=== PATIENT | female | born 1990 | race Caucasian/White ===

== ENCOUNTER 2019-04-17 16:04 | Inpatient (IN) | payer MEDICAID, OTHER ==
[~2019-04-17] VITALS: Ht 152.4 cm; Wt 71.8 kg
[~2019-04-17 16:04] MED LIST: IBUP-1542 PO; Lanolin Hpa TOP; PNV11TAB PO; SENOKOTS PO; TUCKS PR
[2019-04-17] MEDS ORDERED: LACTATED RINGER'S 1,000 ML IV SCH (16:06)
[2019-04-17] MEDS ORDERED: CARBOPROST 250 MCG INJ IM PRN ×2 (16:30→20:00)
[2019-04-17] MEDS ORDERED: METHYLERGONOVINE 0.2 MG INJ IM PRN ×2 (16:30→20:00)
[2019-04-17] MEDS ORDERED: OXYTOCIN 30 UNITS/LR 500 ML IV SCH ×3 (16:30→19:54)
[2019-04-17] MEDS ORDERED: MISOPROSTOL 200 MCG TAB PR PRN ×2 (16:30→20:00)
[2019-04-17] MEDS ORDERED: BUTORPHANOL 2 MG INJ IV PRN (16:30)
[2019-04-17] MEDS ORDERED: LIDOCAINE 1% (MPF) 30 ML INJ INJ PRN (16:30)
[2019-04-17] MEDS ORDERED: OXYTOCIN 30 UNITS/LR 500 ML IV PRN ×2 (16:30→20:00)
[2019-04-17] MEDS ORDERED: IBUPROFEN 600 MG TAB PO PRN (16:30)
[2019-04-17] MEDS ORDERED: FENTAnyl 2MCG/ML-ROPIV 0.2% 100 ML ONE (17:30)
[2019-04-17] MEDS ORDERED: LACTATED RINGER'S 1,000 ML IV ONE (18:00)
[2019-04-17] MEDS: LACTATED RINGER'S 1,000 ML IV* SCH (19:54)
[2019-04-17] MEDS ORDERED: DIBUCAINE 1% 30 GM OINT TOP PRN (20:00)
[2019-04-17] MEDS ORDERED: ACETAMINOPHEN 325 MG TAB PO PRN (20:00)
[2019-04-17] MEDS ORDERED: BENZOCAINE 20% 56 ML SPRAY TOP PRN (20:00)
[2019-04-17] MEDS ORDERED: WITCH HAZEL/GLYCERIN PAD PR PRN (20:00)
[2019-04-17] MEDS ORDERED: ONDANSETRON 4 MG INJ IV PRN (20:00)
[2019-04-17] MEDS ORDERED: LANOLIN HPA 1 PKT TOP PRN (20:00)
[2019-04-17] MEDS ORDERED: MAGNESIUM HYDROXIDE 30ML CUP PO PRN (20:00)
[2019-04-17] MEDS ORDERED: SENNA/DOCUSATE NA (8.6MG/50MG) TAB PO PRN (20:00)
[2019-04-17 20:45] VITALS: BP 101/56; PULSE 83; RESP 19
[2019-04-17] MEDS: IBUPROFEN 600 MG TAB PO PRN (23:46)
[2019-04-17 23:56] VITALS: BP 102/58; PULSE 73; RESP 19
[2019-04-18 03:41] VITALS: BP 90/55; PULSE 72; RESP 18
[2019-04-18] MEDS: LACTATED RINGER'S 1,000 ML IV* SCH (03:54)
[2019-04-18] MEDS: IBUPROFEN 600 MG TAB PO PRN (05:45)
[2019-04-18 08:00] VITALS: BP 105/57; PULSE 75; RESP 18
[2019-04-18] MEDS: ACETAMINOPHEN 325 MG TAB PO PRN (15:15)
[2019-04-18 16:02] VITALS: BP 93/51; PULSE 76; RESP 18
[2019-04-18 20:15] VITALS: BP 97/54; PULSE 71; RESP 18
[2019-04-19 03:45] VITALS: BP 93/53; PULSE 66; RESP 18
[2019-04-19] MEDS: ACETAMINOPHEN 325 MG TAB PO PRN ×2 (05:03→12:39)
[2019-04-19 08:00] VITALS: BP 96/57; PULSE 77; RESP 16
[2019-04-19] MEDS: IBUPROFEN 600 MG TAB PO PRN (12:34)
== END 2019-04-19 15:30 | disposition home or self-care (01) | DRG 807 ==
LOC: OBT 16:04 → L-D 16:05 → OBT 16:06 → L-D 16:06 → OBT 16:56 → L-D 16:56 → PP1 20:35
PROVIDERS: ADMIT Obstetrics & Gynecology Gynecology; ATTEND Obstetrics & Gynecology Gynecology
PROC: 10E0XZZ Delivery of Products of Conception, External Approach (ICD-10-PCS; principal; 2019-04-17)
DX: O80 Encounter for full-term uncomplicated delivery (principal); Z37.0 Single live birth; Z3A.38 38 weeks gestation of pregnancy
CPT/HCPCS: 62322; 80053; 85025; 85610; 85730; 86592; 86703; 86803; 86850; 86900; 86901; 87340; G0463; J2590; J3010; J7120